=== PATIENT | female | born 1940 | race Caucasian/White ===

== ENCOUNTER 2016-11-24 11:21 | Outpatient (CLI) | payer OTHER ==
[~2016-11-24 11:21] MED LIST: ALDACTONE25 MG PO; AMITRIPTYLINE H25 MG PO; ASPIRIN CHILDRE81 MG PO; B12-ACTIVE1 MG PO; BACLOFEN20 MG PO; CETIRIZINE HCL5 M1 PO; CLEOCIN150 MG PO; FELODIPINE ER10 MG PO; FIBER625 MG PO; FOLIC ACID1 MG PO; FUROSEMIDE20 MG PO; INSULIN REGULAR SC; LEVAQUIN500 MG PO; LEVOFLOXACIN500 MG PO; LIPITOR40 MG PO; LOSARTAN POTASS25 MG PO; METFORMIN HCL500 MG PO; MULTIPLE VITAMIN PO; NEURONTIN300 MG PO; NORCO1 TA1 PO; NYSTATIN TOP; TAMOXIFEN CITRA10 MG PO; VITAMIN B 650 MG PO; VITAMIN D-31000 UNIT PO; [UNRECOGNIZED DRUG - OTHER] TOP
== END 2016-11-24 23:00 ==
LOC: LAB SRH 11:21
DX: R60.0 Localized edema (principal); L03.90 Cellulitis, unspecified; N18.2 Chronic kidney disease, stage 2 (mild)
CPT/HCPCS: 90074; 90100; 91320